=== PATIENT | female | born 1965 | race Caucasian/White ===

== ENCOUNTER 2019-04-05 12:50 | Emergency (ER) | payer OTHER ==
[2019-04-05 13:29] VITALS: BP 139/50
--- NOTE | 2019-04-19 18:34 | UC ---
Abdominal Pain Female HPI - HPI Summary HPI Summary: Pt with urgency, frequency and mild dysuria x 2 days no vaginal discharge, itching, odor No back pain mild lower abd cramping no documented fever. no recent UTI no rash, no trauma no n/v home meds as entered in EMR by nitroglycerin nitrator operator batch reviewed this visit - History of Current Complaint Chief Complaint: UCGU Stated Complaint: URINARY COMPLAINT Time Seen by Provider: 04/05/19 13:51 Hx Obtained From: Patient ?: No Onset/Duration: Lasting Days Pain Intensity: 3 Pain Scale Used: 0-10 Numeric Allergies/Adverse Reactions: Allergies Allergy/AdvReac Type Severity Reaction Status Date / Time No Known Allergies Allergy Verified 04/05/19 13:29 Home Medications: Home Medications Ibuprofen 600 mg PO ONCE PRN 04/05/19 [History Confirmed 04/05/19] Nitrofurantoin Monohyd/M-Cryst [Macrobid 100 mg Capsule] 100 mg PO BID #14 cap 04/05/19 [Rx] PMH/Surg Hx/FS Hx/Imm Hx Previously Healthy: Yes - Surgical History Surgical History: None - Family History Known Family History: Negative: Renal Disease - Social History Occupation: Employed Full-time Lives: With Family Alcohol Use: Occasionally Substance Use Type: None Smoking Status (MU): Never Smoked Tobacco Review of Systems All Other Systems Reviewed And Are Negative: Yes Constitutional: Positive: Negative Skin: Positive: Negative Gastrointestinal: Positive: Abdominal Pain - mild cramping. Negative: Vomiting , Nausea Genitourinary: Positive: Dysuria, Frequency, Urgency. Negative: Hematuria, Vaginal/Penile Discharge Motor: Positive: Negative Physical Exam - Summary Physical Exam Summary: Vital Signs Reviewed: Yes A+Ox3, no distress Eyes: Conjunctiva Clear ENT: Hearing grossly normal, mmmoist Neck: Positive: Supple Respiratory: Positive: No respiratory distress, No accessory muscle use + CTA throughout no w/r Cardiovascular: RRR nl s1, s2 no m/r CBT <2 sec abd soft + BS nt/nd no guarding, no distension, no CVA Musculoskeletal Exam: MARY x 4 without difficulty Strength Intact, ROM Intact Neurological: Positive: Alert, + sensation throughout Psychological: Positive: Normal Response To manager pharmacy Skin: Positive: no rash, no ecchymosis Triage Information Reviewed: Yes Vital Signs: Initial Vital Signs Temp 98.1 F 02/19/20 13:26 Pulse 79 04/05/19 13:26 Resp 18 04/05/19 13:26 BP 139/50 04/05/19 13:26 Pulse Ox 100 04/05/19 13:26 Abd Pain Female Course/Dx - Course Course Of Treatment: Pt presents to With urinary frequency, urgency and mild dysuria x 2 days pt without noted fevers no vaginal sx vss exam non concerning urine with LE, blood will start macrobid culture hydrate return precautions pt comfortable and in agreement with plan - Differential Dx/Diagnosis Provider Diagnosis: Dysuria Discharge ED - Sign-Out/Discharge Documenting (check all that apply): Patient Departure All imaging exams completed and their final reports reviewed: No Studies - Discharge Plan Condition: Stable Disposition: HOME Prescriptions: Nitrofurantoin Monohyd/M-Cryst [Macrobid 100 mg Capsule] 100 mg PO BID #14 cap Patient Education Materials: Urinary Tract Infection in Women (ED) Referrals: No Primary Care Phys,NOPCP [Primary Care Provider] - Additional Instructions: - Stay well hydrated - drink plenty of non-alcoholic, non caffinated beverages - your urine will be further tested - if you require any changes to your treatment, we will contact you - this usually take 2 days - Contact your primary doctor to arrange a follow-up appointment next week. Contact your doctor or return with questions or concerns - Take your antibiotics exactly as prescribed until gone - Okay to alternate ibuprofen (Advil, Motrin) 600mg and Tylenol [id number] every 3 hours for pain. Take with food - Call your doctor or return with questions or concerns - Billing Disposition and Condition Condition: STABLE Disposition: Home
== END 2019-04-05 14:35 | disposition home or self-care (01) ==
LOC: UCEAST 12:50
DX: R30.0 Dysuria (principal); R39.15 Urgency of urination; R35.0 Frequency of micturition; R10.30 Lower abdominal pain, unspecified
CPT/HCPCS: 81003; 87077; 87086; 87186; 99202; G0463